=== PATIENT | female | born 1940 | race Caucasian/White ===

== ENCOUNTER → 2017-06-12 | Outpatient (CLI) | payer MEDICARE | END | disposition home or self-care (01) | LOC: OIH 11:22 | PROVIDERS: ATTEND Internal Medicine | DX: R05 Cough (principal); R09.89 Other specified symptoms and signs involving the circulatory and respiratory systems | CPT/HCPCS: 71046 ==

== ENCOUNTER → 2020-06-19 | Outpatient (CLI) | payer MEDICARE | END | disposition home or self-care (01) | LOC: OIH 13:30 | PROVIDERS: ATTEND Internal Medicine | DX: M79.89 Other specified soft tissue disorders (principal) | CPT/HCPCS: 73610 ==

== ENCOUNTER 2020-11-06 19:10 | Emergency (ER) | payer MEDICARE ==
[2020-11-06] MEDS ORDERED: HYDROCODONE/ACETAMINOPHEN 10/325 MG TAB ONE (19:59)
[2020-11-06] MEDS ORDERED: CYCLOBENZAPRINE HCL 10 MG TABLET ONE (19:59)
== END 2020-11-06 20:38 | disposition home or self-care (01) ==
LOC: EDH 19:10
DX: S39.012A Strain of muscle, fascia and tendon of lower back, initial encounter (principal); S93.602A Unspecified sprain of left foot, initial encounter; S90.32XA Contusion of left foot, initial encounter; I10 Essential (primary) hypertension; W18.39XA Other fall on same level, initial encounter; Y93.89 Activity, other specified; Y92.89 Other specified places as the place of occurrence of the external cause; Y99.8 Other external cause status
CPT/HCPCS: 72131; 73600; 73630

== ENCOUNTER 2022-07-13 11:44 | Emergency (ER) | payer MEDICARE ==
[~2022-07-13] VITALS: Ht 167.6 cm; Wt 98.0 kg
[2022-07-13 12:11] LABS: BASOPHILS % (AUTO) 0.5 % (0.0-5.0); EOSINOPHILS % (AUTO) 3.2 % (0.0-8.0); HEMATOCRIT 40.5 % (36-48); LYMPHOCYTES % (AUTO) 19.6 % (21.0-51.0); MEAN CORPUSCULAR HGB CONC 34.3 g/dL (32.0-36.0); MONOCYTES % (AUTO) 8.7 % (3.0-13.0); NEUTROPHILS % (AUTO) 67.7 % (40.0-77.0); PLATELET COUNT (AUTO) 195 K/uL (130-400); RED BLOOD CELL COUNT(AUTO) 4.09 MIL/uL (4.00-5.50); RED CELL DISTRIBUTION WIDTH 11.7 % (11.0-15.5); WHITE BLOOD COUNT (AUTO) 6.2 K/uL (4.8-10.8)
[2022-07-13 12:56] LABS: CREATININE 0.9 mg/dL (0.5-1.5); POTASSIUM 3.6 mmol/L (3.5-5.1)
[2022-07-13 13:00] LABS: ALBUMIN 3.5 g/dL (3.5-5.0); TOTAL PROTEIN, SERUM 7.1 g/dL (6.0-8.3)
[2022-07-13 13:15] LABS: APPEARANCE,URINE CLOUDY (CLEAR); BILIRUBIN,URINE NEGATIVE (NEGATIVE); COLOR,URINE YELLOW (YELLOW); GLUCOSE, URINE (UA) NEGATIVE (NEGATIVE); KETONES,URINE NEGATIVE (NEGATIVE); LEUKOCYTE ESTERASE ,URINE 500 Leu/uL (NEGATIVE); NITRATE,URINE NEGATIVE (NEGATIVE); OCCULT BLOOD,URINE NEGATIVE (NEGATIVE); PROTEIN,URINE 10 mg/dL (NEGATIVE); UROBILINOGEN,URINE 3 mg/dL (0.2-1.0)
[2022-07-13 13:21] LABS: BACTERIA,URINE RARE /HPF (None Seen); MUCUS,URINE RARE LPF (None Seen); OTHER CASTS, URINE 14 /LPF (None Seen); SQUAMOUS EPITHELIAL CELL,UR FEW /HPF (0-2)
[2022-07-13 13:53] VITALS: BP 130/67
== END 2022-07-13 13:59 | disposition home or self-care (01) ==
LOC: EDH 11:44
DX: I95.2 Hypotension due to drugs (principal); T50.995A Adverse effect of other drugs, medicaments and biological substances, initial encounter; E78.00 Pure hypercholesterolemia, unspecified; I10 Essential (primary) hypertension; I48.91 Unspecified atrial fibrillation; Z90.710 Acquired absence of both cervix and uterus; Z79.899 Other long term (current) drug therapy; Y92.89 Other specified places as the place of occurrence of the external cause
CPT/HCPCS: 36415; 80053; 81001; 84484; 85025; 87088; 93005

== ENCOUNTER 2023-09-05 11:45 | Emergency (ER) | payer MEDICARE ==
[~2023-09-05] VITALS: Ht 157.5 cm; Wt 85.7 kg
[2023-09-05 12:23] VITALS: BP 147/76; PULSE 68; RESP 18
[2023-09-05] MEDS ORDERED: MUPI22OI2 TP (13:43)
[2023-09-05] MEDS ORDERED: AMOX1TAB16 PO (13:43)
[2023-09-05] MEDS: DIPH,PERTUSS(ACELL),TET VAC/PF 0.5 ML VIAL IM ONE (14:28)
== END 2023-09-05 14:55 | disposition home or self-care (01) ==
LOC: EDH 11:45
DX: S50.812A Abrasion of left forearm, initial encounter (principal); I48.91 Unspecified atrial fibrillation; E78.00 Pure hypercholesterolemia, unspecified; I10 Essential (primary) hypertension; Z90.49 Acquired absence of other specified parts of digestive tract; X58.XXXA Exposure to other specified factors, initial encounter; Y93.89 Activity, other specified; Y92.89 Other specified places as the place of occurrence of the external cause; Y99.8 Other external cause status
CPT/HCPCS: 90471; 90715